=== PATIENT | male | born 1980 | race Caucasian/White ===

== ENCOUNTER 2017-01-04 01:55 | Emergency (ER) | payer OTHER ==
--- NOTE | 2017-01-04 02:55 | ED ---
Constantino Scott Rebecca, scribed for Fortino Goins MD on 01/04/17 at 0249 . Lower Extremity - HPI Summary HPI Summary: Pt is a 36 y/o M BIBA who presents to ED C/O LLE swelling and pain. Reports swelling began in the foot, then traveled up the leg. Pain in the L foot is currently moderate, ranked 7/10. Sx began earlier this morning at approximately 0000 and have been constant since onset. Sx aggravated and alleviated by nothing. Denies fever. Pt is able to bear weight. Negative trauma. Confirms he has been walking around barefoot. Unsure of the last time he saw his PCP. - History of Current Complaint Chief Complaint: EDExtremityLower Stated Complaint: LEG PAIN Time Seen by Provider: 01/04/17 02:39 Hx Obtained From: Patient Onset of Pain: Hours, Prior to Arrival Onset/Duration: Still Present Severity Currently: Moderate Pain Intensity: 7 Pain Scale Used: 0-10 Numeric Timing: Constant Location: Is Discrete @ - L foot Associated Signs And Symptoms: Positive: Swelling - LLE swelling Aggravating Factor(s): Nothing Alleviating Factor(s): Nothing Able to Bear Weight: Yes - Allergies/Home Medications Allergies/Adverse Reactions: Allergies Allergy/AdvReac Type Severity Reaction Status Date / Time No Known Allergies Allergy Verified 04/26/12 20:35 PMH/Surg Hx/FS Hx/Imm Hx Endocrine/Hematology History: Denies: Hx Anticoagulant Therapy, Hx Diabetes, Hx Thyroid Disease Cardiovascular History: Denies: Hx Hypertension, Hx Pacemaker/ICD Respiratory History: Reports: Hx Asthma - childhood Denies: Hx Chronic Obstructive Pulmonary Disease (COPD) History: Denies: Hx Renal Disease Neurological History: Denies: Hx Dementia, Hx Seizures Psychiatric History: Denies: Hx Substance Abuse - Surgical History Surgery Procedure, Year, and Place: 2 left EYE LID SURGERIES Infectious Disease History: No Infectious Disease History: Denies: Hx Hepatitis, Hx Human Immunodeficiency Virus (HIV), History Other Infectious Disease, Traveled Outside the [place] in Last 30 Days - Social History Alcohol Use: None 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, 2012 Substance Use Type: Reports: Heroin, Marijuana Substance Use Comment - 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: meth, uses daily Smoking Status (MU): Heavy Every Day Tobacco Smoker Type: Cigarettes Amount Used/How Often: 1 ppd Review of Systems Negative: Fever Positive: Arthralgia - LLE swelling and pain All Other Systems Reviewed And Are Negative: Yes Physical Exam Triage Information Reviewed: Yes Vital Signs On Initial Exam: Initial Vitals Temp Pulse Resp BP Pulse Ox 97.4 F 63 16 136/78 100 01/04/17 02:06 01/04/17 02:06 01/04/17 02:06 01/04/17 02:06 01/04/17 02:06 Vital Signs Reviewed: Yes Appearance: Positive: Well-Appearing, No Pain Distress Skin: Positive: Warm Head/Face: Positive: Normal Head/Face Inspection Eyes: Positive: YURIDIA ENT: Positive: Hearing grossly normal Neck: Positive: Supple Respiratory/Lung Sounds: Positive: Clear to Auscultation, Breath Sounds Present Cardiovascular: Positive: RRR Abdomen Description: Positive: Nontender, Soft Bowel Sounds: Positive: Present Musculoskeletal: Positive: Strength/ROM Intact, Other - 1+ bipedal edema Neurological: Positive: Alert, Oriented to Person Place, Time Psychiatric: Positive: Affect/Mood Appropriate - [place] Coma Scale Coma Scale Total: 15 Diagnostics - Vital Signs Vital Signs Temp Pulse Resp BP Pulse Ox 01/04/17 02:08 97.4 F 63 16 136/78 100 01/04/17 02:06 97.4 F 63 16 136/78 100 - Laboratory Result Diagrams: 01/04/17 03:05 01/04/17 03:05 Lab Statement: Any lab studies that have been ordered have been reviewed, and results considered in the medical decision making process. Re-Evaluation - Re-Evaluation First Eval Comment: results d/w pt Lower Extremity Course/Dx - Course Assessment/Plan: Pt is a 36 y/o M BIBA who presents to ED C/O LLE swelling and pain. Reports swelling began in the foot, then traveled up the leg. Pain in the L foot is currently moderate, ranked 7/10. Sx began earlier this morning at approximately 0000 and have been constant since onset. Sx aggravated and alleviated by nothing. Denies fever. Pt is able to bear weight. Negative trauma. Confirms he has been walking around barefoot. Pt will be D/C to home with Dx of pedal edema. He understands and agrees. - Diagnoses Provider Diagnoses: Pedal edema Discharge - Discharge Plan Condition: Stable Disposition: HOME Patient Education Materials: Leg Edema (ED) Referrals: Jeison Woody MD [Primary Care Provider] - 3 Days The documentation as recorded by the Constantino parker Rebecca accurately reflects the service I personally performed and the decisions made by me, Fortino Goins MD.
[2017-01-04 03:11] LABS: Hematocrit 40 % (42-52); Hemoglobin 13.2 g/dl (14.0-18.0); Mean Corpuscular HGB Conc 33 g/dl (31-36); Mean Corpuscular Hemoglobin 32 pg (27-31); Mean Corpuscular Volume 95 fL (80-94); Mean Platelet Volume 7 um3 (7.4-10.4); Red Blood Count 4.14 10^6/ul (4.0-5.4); Red Cell Distribution Width 13 % (10.5-15); White Blood Count 6.8 10^3/ul (3.5-10.8)
[2017-01-04 03:27] LABS: BUN/Creatinine Ratio 7.9 (8-20); Calcium 8.9 mg/dL (8.6-10.3); EGFR African American 185.3 (>60); EGFR Non-African American 144.1 (>60); Potassium 3.5 mmol/L (3.5-5.0)
[2017-01-04 04:50] VITALS: BP 145/90
== END 2017-01-04 04:48 | disposition home or self-care (01) ==
LOC: ED 01:55
DX: R60.0 Localized edema (principal); J45.909 Unspecified asthma, uncomplicated; F11.90 Opioid use, unspecified, uncomplicated; F17.210 Nicotine dependence, cigarettes, uncomplicated
CPT/HCPCS: 36415; 80048; 85025; 99283

== ENCOUNTER 2017-07-22 11:36 | Emergency (ER) | payer OTHER ==
[2017-07-22 13:53] VITALS: BP 128/73
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
== END 2017-07-22 14:55 | disposition home or self-care (01) ==
LOC: UCEAST 11:36
DX: S00.93XA Contusion of unspecified part of head, initial encounter (principal); W50.0XXA Accidental hit or strike by another person, initial encounter; Y93.9 Activity, unspecified; Y92.9 Unspecified place or not applicable; F11.90 Opioid use, unspecified, uncomplicated; F12.90 Cannabis use, unspecified, uncomplicated; F17.210 Nicotine dependence, cigarettes, uncomplicated
CPT/HCPCS: 70450; 99211; G0463

== ENCOUNTER 2018-07-06 14:31 | Emergency (ER) | payer OTHER ==
[2018-07-06 14:50] VITALS: BP 107/67
--- NOTE | 2018-07-06 15:17 | ED ---
Throat Pain/Nasal Congestion - HPI Summary HPI Summary: swelling left eye, upper and lower lid, with minimal pain, no fever , or chills same thing occurred to right eye several weeks before, resolved spontaneously - History of Current Complaint Chief Complaint: UCEye Time Seen by Provider: 07/06/18 14:58 Hx Obtained From: Patient Onset/Duration: Lasting Days Severity: Moderate - Epiglottits Risk Factors Epiglottis Risk Factors: Negative - Allergies/Home Medications Allergies/Adverse Reactions: Allergies Allergy/AdvReac Type Severity Reaction Status Date / Time No Known Allergies Allergy Verified 07/06/18 14:50 PMH/Surg Hx/FS Hx/Imm Hx Previously Healthy: Yes Endocrine/Hematology History: Denies: Hx Anticoagulant Therapy, Hx Diabetes, Hx Thyroid Disease Cardiovascular History: Denies: Hx Hypertension, Hx Pacemaker/ICD Respiratory History: Denies: Hx Asthma - childhood, Hx Chronic Obstructive Pulmonary Disease (COPD ) GI History: Denies: Hx Ulcer History: Denies: Hx Renal Disease Neurological History: Denies: Hx Dementia, Hx Seizures Psychiatric History: Denies: Hx Substance Abuse - Surgical History Surgery Procedure, Year, and Place: 2 left EYE LID SURGERIES to raise eyelid Infectious Disease History: No Infectious Disease History: Denies: Hx Hepatitis, Hx Human Immunodeficiency Virus (HIV), History Other Infectious Disease, Traveled Outside the [place] in Last 30 Days - Family History Known Family History: Positive: Diabetes, Other - HLD - Social History Alcohol Use: None 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, 2012 Substance Use Type: Reports: None Substance Use Comment - 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: meth, uses daily clean 30 days Smoking Status (MU): Heavy Every Day Tobacco Smoker Type: Cigarettes Amount Used/How Often: 1 ppd Review of Systems Constitutional: Negative Eyes: Other - discharge right eye, swelling upper lid, ENT: Negative Cardiovascular: Negative Respiratory: Negative Gastrointestinal: Negative All Other Systems Reviewed And Are Negative: Yes Physical Exam Triage Information Reviewed: Yes Vital Signs On Initial Exam: Initial Vitals Temp Pulse Resp BP Pulse Ox 36.7 C 88 18 107/67 99 07/06/18 14:44 07/06/18 14:44 07/06/18 14:44 07/06/18 14:44 07/06/18 14:44 Vital Signs Reviewed: Yes Appearance: Positive: Well-Appearing, No Pain Distress Skin: Positive: Warm - swellling left upper lid, with some drainage from the lower lid? nontender, Other - lesions of the posterior scalp with scabs , without drainage Head/Face: Positive: Normal Head/Face Inspection Eyes: Positive: Discharge - swelling left upper lid ENT: Positive: Normal ENT inspection Neck: Positive: Supple Respiratory/Lung Sounds: Positive: Clear to Auscultation Diagnostics - Vital Signs Vital Signs Temp Pulse Resp BP Pulse Ox 07/06/18 14:44 36.7 C 88 18 107/67 99 - Laboratory Lab Statement: Any lab studies that have been ordered have been reviewed, and results considered in the medical decision making process. EENT Course/Dx - Diagnoses Provider Diagnoses: Preseptal cellulitis of left eye Discharge - Sign-Out/Discharge Documenting (check all that apply): Patient Departure All imaging exams completed and their final reports reviewed: No - Discharge Plan Condition: Fair Disposition: HOME Prescriptions: Amoxicillin/Clavulanate TAB* [Augmentin TAB 875*] 875 mg PO BID #14 tab Patient Education Materials: Periorbital Cellulitis in Adults (ED) Referrals: Anmol Liu MD [Primary Care Provider] - Matti Garcias MD [Medical Doctor] - Additional Instructions: 4:30 Dr. Moses office - Billing Disposition and Condition Condition: FAIR Disposition: Home
[2018-07-06] MEDS ORDERED: Amoxicillin/Clavulanate TAB* 875 MG PO ONE (15:33)
== END 2018-07-06 15:46 | disposition home or self-care (01) ==
LOC: UCEAST 14:31
DX: L03.213 Periorbital cellulitis (principal); F17.210 Nicotine dependence, cigarettes, uncomplicated
CPT/HCPCS: 87070; 87077; 87186; 87205; 99212; A9270-GY; G0463

== ENCOUNTER 2019-01-24 11:01 | Emergency (ER) | payer OTHER ==
[2019-01-24 11:18] VITALS: BP 139/85
[2019-01-24] MEDS ORDERED: NS 0.9% 1000 ML** 1,000 ML IV ONE (11:45)
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
== END 2019-01-24 12:00 | disposition short-term general hospital (02) ==
LOC: UCEAST 11:01
DX: R06.02 Shortness of breath (principal); I48.91 Unspecified atrial fibrillation
CPT/HCPCS: 93005; 99213; G0463

== ENCOUNTER 2019-01-24 12:31 | Emergency (ER) | payer OTHER ==
[2019-01-24] MEDS ORDERED: Aspirin 81 mg CHEW TAB* 81 MG TAB.CHEW PO ONE (12:40)
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
[2019-01-24 13:41] LABS: ABS Eosinophils 0.3 10^3/ul (0-0.6); ABS Lymphocytes 2.2 10^3/ul (1.0-4.8); ABS Monocytes 0.6 10^3/ul (0-0.8); ABS Neutrophils 2.8 10^3/ul (1.5-7.7); Eosinophil % 4.4 %; Hematocrit 46 % (42-52); Hemoglobin 16.5 g/dL (14.0-18.0); Lymphocyte % 37.1 %; Mean Corpuscular HGB Conc 36 g/dL (31-36); Mean Corpuscular Hemoglobin 33 pg (27-31); Mean Corpuscular Volume 92 fL (80-94); Mean Platelet Volume 7.2 fL (7.4-10.4); Nucleated Red Blood Cells % 0.1; Platelet Count 311 10^3/uL (150-450); Red Blood Count 5.08 10^6 /uL (4.18-5.48); Red Cell Distribution Width 14 % (10-15); White Blood Count 5.9 10^3/uL (3.5-10.8)
[2019-01-24 13:56] LABS: Albumin 4.7 g/dL (3.2-5.2); Albumin/Globulin Ratio 1.6 (1-3); BUN/Creatinine Ratio 16.5 (8-20); Calcium 9.5 mg/dL (8.6-10.3); EGFR African American 132.8 (>60); EGFR Non-African American 109.8 (>60); Potassium 4.4 mmol/L (3.5-5.0); Total Bilirubin 0.7 mg/dL (0.2-1.0); Total Protein 7.7 g/dL (6.4-8.9)
[2019-01-24 16:54] VITALS: BP 139/64
== END 2019-01-24 17:01 | disposition home or self-care (01) ==
LOC: ED 12:31
DX: R07.9 Chest pain, unspecified (principal); R06.02 Shortness of breath; R11.0 Nausea; F19.10 Other psychoactive substance abuse, uncomplicated; F17.210 Nicotine dependence, cigarettes, uncomplicated
CPT/HCPCS: 36415; 71045; 80053; 84484; 85025; 93005; 99283; A9270-GY

== ENCOUNTER 2019-04-07 08:45 | Emergency (ER) | payer OTHER ==
[2019-04-07 09:02] VITALS: BP 122/73
[2019-04-07] MEDS ORDERED: Tetan/Diph/Pertus SYR(Tdap)* 0.5 ML SYR(BOOSTRIX) use SYR contains LATEX IM ONE (09:06)
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
== END 2019-04-07 11:09 | disposition home or self-care (01) ==
LOC: UCEAST 08:45
DX: M70.21 Olecranon bursitis, right elbow (principal); S60.811D Abrasion of right wrist, subsequent encounter; I10 Essential (primary) hypertension; J45.909 Unspecified asthma, uncomplicated; F17.210 Nicotine dependence, cigarettes, uncomplicated; Z23 Encounter for immunization; W19.XXXD Unspecified fall, subsequent encounter
CPT/HCPCS: 87070; 87077; 87186; 87205; 87640; 87641; 90471; 90715; 99213; G0463

== ENCOUNTER 2019-05-05 23:23 | Emergency (ER) | payer OTHER ==
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
[2019-05-06 00:36] LABS: ABS Basophils 0.1 10^3/ul (0-0.2); ABS Eosinophils 0.3 10^3/ul (0-0.6); ABS Lymphocytes 1.9 10^3/ul (1.0-4.8); ABS Monocytes 0.7 10^3/ul (0-0.8); Eosinophil % 4.8 %; Hematocrit 38 % (42-52); Hemoglobin 13.2 g/dL (14.0-18.0); Lymphocyte % 26.8 %; Mean Corpuscular HGB Conc 35 g/dL (31-36); Mean Corpuscular Hemoglobin 32 pg (27-31); Mean Corpuscular Volume 92 fL (80-94); Mean Platelet Volume 6.9 fL (7.4-10.4); Platelet Count 277 10^3/uL (150-450); Red Blood Count 4.16 10^6 /uL (4.18-5.48); Red Cell Distribution Width 13 % (10-15); White Blood Count 6.9 10^3/uL (3.5-10.8)
[2019-05-06 00:46] LABS: ALT 33 U/L (7-52); AST 42 U/L (13-39); Albumin 4.1 g/dL (3.2-5.2); Albumin/Globulin Ratio 1.6 (1-3); Alkaline Phosphatase 71 U/L (34-104); Anion Gap 5 mmol/L (2-11); BUN/Creatinine Ratio 9.5 (8-20); Blood Urea Nitrogen 6 mg/dL (6-24); CO2 Carbon Dioxide 28 mmol/L (22-32); Calcium 9.5 mg/dL (8.6-10.3); Chloride 106 mmol/L (101-111); EGFR African American 171.6 (>60); EGFR Non-African American 141.8 (>60); Globulin 2.6 g/dL (2-4); Glucose 154 mg/dL (70-100); Potassium 3.5 mmol/L (3.5-5.0); Sodium 139 mmol/L (135-145); Total Protein 6.7 g/dL (6.4-8.9)
[2019-05-06 01:02] LABS: Acetaminophen < 15 mcg/mL; Alcohol < 10 mg/dL (<10); Salicylate < 2.50 mg/dL (<30)
[2019-05-06 01:16] LABS: TSH (Thyroid Stimulating Horm) 0.49 mcIU/mL (0.34-5.60)
[2019-05-06 02:47] LABS: Urine Appearance Cloudy; Urine Color Yellow; Urine Specific Gravity 1.025 (1.010-1.030)
[2019-05-06 02:48] LABS: Urine Ketones 1+ (Negative); Urine Urobilinogen Positive (Negative)
[2019-05-06 02:49] LABS: Urine Blood Negative (Negative); Urine Protein Negative (Negative)
[2019-05-06 02:50] LABS: Urine Bilirubin 0 (Negative); Urine Glucose Negative (Negative); Urine Nitrite 0 (Negative)
[2019-05-06 02:58] LABS: Urine Benzodiazepine Screen None Detected (None Detect); Urine Opiates Screen None Detected (None Detect)
[2019-05-06 05:51] VITALS: BP 129/77
== END 2019-05-06 05:50 | disposition home or self-care (01) ==
LOC: ED 23:23
DX: F19.14 Other psychoactive substance abuse with psychoactive substance-induced mood disorder (principal); R45.851 Suicidal ideations; I10 Essential (primary) hypertension; F17.210 Nicotine dependence, cigarettes, uncomplicated
CPT/HCPCS: 36415; 80053; 80307; 80320; 80329; 81003; 84443; 85025; 99285; G0480

== ENCOUNTER 2019-08-13 10:04 | Emergency (ER) | payer OTHER ==
[2019-08-13 10:41] LABS: Influenza A Molecular POSITIVE (Negative)
[2019-08-13] MEDS ORDERED: Ketorolac *IM* INJ* 60 MG/2 ML VIAL IM ONE (10:41)
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
[2019-08-13] MEDS ORDERED: Acetaminophen TAB* 325 MG PO ONE (10:42)
[2019-08-13 12:26] VITALS: BP 139/74
== END 2019-08-13 12:38 | disposition home or self-care (01) ==
LOC: UCEAST 10:04
DX: J11.1 Influenza due to unidentified influenza virus with other respiratory manifestations (principal); M54.9 Dorsalgia, unspecified; M16.12 Unilateral primary osteoarthritis, left hip; F17.210 Nicotine dependence, cigarettes, uncomplicated; Z98.890 Other specified postprocedural states; X50.0XXA Overexertion from strenuous movement or load, initial encounter; Y93.H1 Activity, digging, shoveling and raking; Y92.9 Unspecified place or not applicable
CPT/HCPCS: 71046; 81003; 87086; 99212; A9270-GY; G0463; J1885

== ENCOUNTER 2021-11-12 06:21 | Inpatient (IN) ==
[2021-11-12 06:55] LABS: ABS Eosinophils 0.2 10^3/ul (0-0.6); ABS Monocytes 0.4 10^3/ul (0-0.8); Eosinophil % 2.3 %; Hematocrit 45 % (42-52); Hemoglobin 15.1 g/dL (14.0-18.0); Mean Corpuscular HGB Conc 33 g/dL (31-36); Mean Corpuscular Hemoglobin 31 pg (27-31); Mean Corpuscular Volume 93 fL (80-94); Mean Platelet Volume 6.6 fL (7.4-10.4); Platelet Count 336 10^3/uL (150-450); Red Blood Count 4.85 10^6 /uL (4.18-5.48); Red Cell Distribution Width 14 % (10-15); White Blood Count 8.6 10^3/uL (3.5-10.8)
[2021-11-12] MEDS ORDERED: Naloxone 0.4 mg VIAL 0.4 mg/ml 1 ml VIAL ONE (07:02)
[2021-11-12] MEDS ORDERED: Naloxone 0.4 mg VIAL 0.4 mg/ml 1 ml VIAL IV PUSH ONE (07:04)
[2021-11-12] MEDS ORDERED: Ondansetron 4 mg VIAL 2 MG/ML 2 ml VIAL IV PRN (07:45)
[2021-11-12 07:49] LABS: ALT 49 U/L (7-52); AST 38 U/L (13-39); Acetaminophen < 15 mcg/mL; Albumin 4.8 g/dL (3.2-5.2); Albumin/Globulin Ratio 1.6 (1-3); Alcohol, S < 13 mg/dL (<13); Alkaline Phosphatase 101 U/L (35-149); Anion Gap 10 mmol/L (2-11); Blood Urea Nitrogen 18 mg/dL (6-24); CO2 Carbon Dioxide 25 mmol/L (22-32); Calcium 9.8 mg/dL (8.6-10.3); Chloride 101 mmol/L (101-111); Glucose 196 mg/dL (70-100); Potassium 3.8 mmol/L (3.5-5.0); Salicylate < 2.50 mg/dL (<30); Sodium 136 mmol/L (135-145); Total Protein 7.8 g/dL (6.4-8.9); eGFR CKD-EPI 90.4 (>60)
[2021-11-12] MEDS ORDERED: Naloxone 0.4 mg VIAL 2 MG in NS 0.9% 250 ml 245 ML IV SCH (08:00)
[2021-11-12] MEDS: NS 0.9% 1000 ml BAG 1,000 ML IV ONE ×2 (08:47→08:52)
[2021-11-12 10:04] LABS: Acetaminophen < 15 mcg/mL; Salicylate < 2.50 mg/dL (<30)
[2021-11-12] MEDS: Lactated Ringers 1000 ml BAG 1,000 ML IV SCH ×2 (11:02→18:31)
[2021-11-12] MEDS: Nicotine PATCH 21 MG/24 HR PATCH TRANSDERM SCH (12:33)
[2021-11-12 19:48] LABS: Urine Benzodiazepine Screen None Detected (None Detect); Urine Cannabinoids Screen Presumptive Positive (None Detect); Urine Opiates Screen None Detected (None Detect)
[2021-11-12 22:16] LABS: Magnesium 2.1 mg/dL (1.9-2.7); Phosphorus 3.4 mg/dL (2.5-5.0)
[2021-11-13] MEDS: Lactated Ringers 1000 ml BAG 1,000 ML IV SCH (02:51)
[2021-11-13 04:19] LABS: ABS Eosinophils 0.2 10^3/ul (0-0.6); ABS Lymphocytes 1.8 10^3/ul (1.0-4.8); ABS Monocytes 0.3 10^3/ul (0-0.8); ABS Neutrophils 3.5 10^3/ul (1.5-7.7); Eosinophil % 3.1 %; Hematocrit 39 % (42-52); Hemoglobin 12.9 g/dL (14.0-18.0); Lymphocyte % 30.7 %; Mean Corpuscular HGB Conc 33 g/dL (31-36); Mean Corpuscular Hemoglobin 31 pg (27-31); Mean Corpuscular Volume 93 fL (80-94); Mean Platelet Volume 6.7 fL (7.4-10.4); Platelet Count 281 10^3/uL (150-450); Red Blood Count 4.14 10^6 /uL (4.18-5.48); Red Cell Distribution Width 14 % (10-15); White Blood Count 5.9 10^3/uL (3.5-10.8)
[2021-11-13 04:22] LABS: INR 1.18 (0.86-1.15)
[2021-11-13 04:35] LABS: Calcium 8.5 mg/dL (8.6-10.3); Potassium 3.8 mmol/L (3.5-5.0); eGFR CKD-EPI 129.9 (>60)
[2021-11-13 06:33] VITALS: BP 149/103
[2021-11-13] MEDS: Nicotine PATCH 21 MG/24 HR PATCH TRANSDERM SCH (07:51)
== END 2021-11-13 09:51 | disposition home or self-care (01) | DRG 812 ==
LOC: ED 06:21 → ICU 08:46 → ED 08:47 → ICU 09:09
PROVIDERS: ADMIT Internal Medicine Critical Care Medicine; ATTEND Internal Medicine Critical Care Medicine

== ENCOUNTER 2022-06-08 00:33 | Inpatient (IN) ==
[2022-06-08] MEDS ORDERED: NS 0.9% 1000 ml BAG 1,000 ML IV ONE ×2 (00:40→02:38)
[2022-06-08 01:20] LABS: PCO2 Arterial 41 mmHg (35-45); PO2 Arterial 147 mmHg (80-100)
[2022-06-08 01:28] LABS: ABS Eosinophils 0.2 10^3/ul (0-0.6); ABS Lymphocytes 1.7 10^3/ul (1.0-4.8); ABS Monocytes 0.6 10^3/ul (0-0.8); ABS Neutrophils 4.2 10^3/ul (1.5-7.7); Eosinophil % 3.4 %; Hematocrit 38 % (42-52); Hemoglobin 12.6 g/dL (14.0-18.0); Lymphocyte % 25.4 %; Mean Corpuscular HGB Conc 33 g/dL (31-36); Mean Corpuscular Hemoglobin 31 pg (27-31); Mean Corpuscular Volume 92 fL (80-94); Mean Platelet Volume 6.5 fL (7.4-10.4); Platelet Count 313 10^3/uL (150-450); Red Blood Count 4.11 10^6 /uL (4.18-5.48); Red Cell Distribution Width 14 % (10-15); White Blood Count 6.8 10^3/uL (3.5-10.8)
[2022-06-08 01:34] LABS: INR 1.16 (0.88-1.18)
[2022-06-08 01:49] LABS: ALT 96 U/L (7-52); AST 64 U/L (13-39); Acetaminophen < 15 mcg/mL; Albumin/Globulin Ratio 1.6 (1-3); Alcohol, S < 13 mg/dL (<13); Alkaline Phosphatase 92 U/L (35-149); Anion Gap 7 mmol/L (2-11); Blood Urea Nitrogen 13 mg/dL (6-24); CO2 Carbon Dioxide 30 mmol/L (22-32); Calcium 8.7 mg/dL (8.6-10.3); Chloride 104 mmol/L (101-111); Creatine Kinase 94 U/L (10-223); Globulin 2.5 g/dL (2-4); Glucose 102 mg/dL (70-100); Magnesium 1.8 mg/dL (1.9-2.7); Potassium 3.6 mmol/L (3.5-5.0); Salicylate < 2.50 mg/dL (<30); Sodium 141 mmol/L (135-145); Total Protein 6.5 g/dL (6.4-8.9); eGFR CKD-EPI 121.2 (>60)
[2022-06-08 01:51] LABS: High Sens Troponin Baseline 7 pg/mL (<20)
[2022-06-08 02:03] LABS: TSH Ultra Thyroid Stim Horm 2.28 mcIU/mL (0.34-5.60)
[2022-06-08 03:28] LABS: High Sensitivity Troponin 1 Hr 16 pg/mL (<20)
[2022-06-08] MEDS ORDERED: Naloxone 0.4 mg VIAL 0.4 mg/ml 1 ml VIAL IV PUSH ONE ×2 (03:43→08:54)
[2022-06-08 05:16] LABS: Urine Appearance Clear; Urine Bilirubin Negative (Negative); Urine Blood Negative (Negative); Urine Color Yellow; Urine Glucose Negative (Negative); Urine Ketones Negative (Negative); Urine Nitrite Negative (Negative); Urine Protein 1+ (30 mg/dL) (Negative); Urine Urobilinogen 0.2 (Negative) (Negative); Urine pH 6.5 (5.0-9.0)
[2022-06-08 05:28] LABS: Urine Benzodiazepine Screen Presumptive Positive (None Detect); Urine Cannabinoids Screen None Detected (None Detect); Urine Opiates Screen None Detected (None Detect)
[2022-06-08 05:39] LABS: Urine Bacteria Absent (Absent); Urine Red Blood Cell Trace(0-2/hpf) (Absent); Urine Squamous Epithelial Cell Present (Absent); Urine White Blood Cell Trace(0-5/hpf) (Absent)
[2022-06-08] MEDS ORDERED: Naloxone 4 mg VIAL 0.4 MG/ML 10 ml VIAL (4 mg) ONE (08:44)
[2022-06-08] MEDS ORDERED: Albuterol/Ipratropium NEB.SOL (2.5/0.5 MG) 3 ML NEB.SOLN INH ONE (08:52)
[2022-06-08] MEDS ORDERED: Magnesium Sulfate IV 3 GM in NS 0.9% 100 ml BAG 100 ML IVPB ONE (13:16)
[2022-06-08] MEDS ORDERED: Naloxone 0.4 mg VIAL 0.4 mg/ml 1 ml VIAL IV PUSH PRN ×2 (13:35→14:32)
[2022-06-08] MEDS ORDERED: Thiamine 100 MG/ML 2 ml VIAL 100 MG, Folic Acid IV 1 MG, Multiple Vitamin IV ADULT 10 M... IV ONE (14:00)
[2022-06-08 14:21] LABS: PCO2 Arterial 47 mmHg (35-45); PO2 Arterial 63 mmHg (80-100)
[2022-06-08] MEDS ORDERED: Naloxone 0.4 mg VIAL 2 MG in NS 0.9% 250 ml 245 ML IV SCH ×3 (17:00)
[2022-06-08] MEDS: NALOXONE IV SCH (17:25)
[2022-06-08] MEDS: NS 0.9% IV SCH (17:25)
[2022-06-08] MEDS: Enoxaparin 40 MG/0.4 ML SYR SUBCUT SCH (17:29)
[2022-06-09] MEDS: NS 0.9% IV SCH (01:50)
[2022-06-09] MEDS: NALOXONE IV SCH (01:50)
[2022-06-09 04:46] LABS: ABS Eosinophils 0.2 10^3/ul (0-0.6); ABS Lymphocytes 1.3 10^3/ul (1.0-4.8); ABS Monocytes 0.8 10^3/ul (0-0.8); ABS Neutrophils 9.6 10^3/ul (1.5-7.7); Eosinophil % 1.5 %; Hematocrit 37 % (42-52); Hemoglobin 12.7 g/dL (14.0-18.0); Lymphocyte % 10.7 %; Mean Corpuscular HGB Conc 35 g/dL (31-36); Mean Corpuscular Hemoglobin 31 pg (27-31); Mean Corpuscular Volume 89 fL (80-94); Mean Platelet Volume 6.7 fL (7.4-10.4); Platelet Count 290 10^3/uL (150-450); Red Blood Count 4.13 10^6 /uL (4.18-5.48); Red Cell Distribution Width 13 % (10-15); White Blood Count 11.9 10^3/uL (3.5-10.8)
[2022-06-09 05:24] LABS: Calcium 8.5 mg/dL (8.6-10.3); Magnesium 1.6 mg/dL (1.9-2.7); Potassium 3.9 mmol/L (3.5-5.0); eGFR CKD-EPI 133.1 (>60)
[2022-06-09] MEDS ORDERED: KCL 10 MEQ/50 ML IVPREMIX 10 MEQ/50 ML BAG IV ONE (05:53)
[2022-06-09] MEDS ORDERED: Magnesium Sulfate IV 3 GM in NS 0.9% 100 ml BAG 100 ML IVPB ONE (05:53)
[2022-06-09] MEDS: Enoxaparin 40 MG/0.4 ML SYR SUBCUT SCH (12:58)
[2022-06-09 16:35] VITALS: BP 120/66
== END 2022-06-09 15:31 | disposition home or self-care (01) | DRG 812 ==
LOC: EDHOLD 00:33 → ED 00:33 → ICU 17:23
PROVIDERS: ADMIT Internal Medicine; ATTEND Internal Medicine

== ENCOUNTER 2024-07-20 16:33 | Inpatient (IN) ==
[2024-07-20 16:37] VITALS: BP 145/89
[2024-07-20 18:40] LABS: Urine Appearance Clear; Urine Bilirubin Negative (Negative); Urine Blood Trace (Negative); Urine Color Light-Yellow; Urine Glucose Negative (Negative); Urine Ketones Negative (Negative); Urine Nitrite Negative (Negative); Urine Protein 1+ (>=30 mg/dL) (Negative); Urine Specific Gravity 1.017 (1.002-1.030); Urine Urobilinogen Negative (Negative)
[2024-07-20 18:48] LABS: Urine Bacteria Absent /HPF (Absent); Urine Red Blood Cell 1+(3-5/hpf) /HPF (0-Trace); Urine White Blood Cell Trace(0-5/hpf) /HPF (0-Trace)
[2024-07-20 19:06] LABS: Urine Benzodiazepine Screen None Detected (None Detect); Urine Cannabinoids Screen None Detected (None Detect); Urine Opiates Screen None Detected (None Detect)
[2024-07-20 19:40] LABS: ABS Eosinophils 0.2 10^3/uL (0.0-0.5); ABS Lymphocytes 1.8 10^3/uL (1.0-4.8); ABS Monocytes 0.4 10^3/uL (0.0-1.1); ABS Neutrophils 3.4 10^3/uL (1.5-7.6); ABS Nucleated RBC 0.01 10^3/ul; Eosinophil % 2.8 %; Hematocrit 41.4 % (38-53); Lymphocyte % 30.3 %; Mean Corpuscular Hemoglobin 30.9 pg (27-33); Mean Corpuscular Hgb Conc 33.8 g/dL (31-36); Mean Corpuscular Volume 91.5 fL (80-97); Mean Platelet Volume 6.6 fL (7.5-11.2); Nucleated Red Blood Cells % 0.2 %/100WBC (0.0-0.8); Platelet Count 332 10^3/uL (150-450); Red Blood Count 4.52 10^6/uL (4.06-5.63); Red Cell Distribution Width 13.8 % (12-17); White Blood Count 5.8 10^3/uL (3.6-10.2)
[2024-07-20 20:14] LABS: ALT 45 U/L (7-52); AST 33 U/L (13-39); Acetaminophen < 15 mcg/mL; Albumin 4.9 g/dL (3.5-5.7); Albumin/Globulin Ratio 1.5 (1-3); Alcohol, S < 13 mg/dL (<13); Alkaline Phosphatase 75 U/L (35-149); Anion Gap 5 mmol/L (2-16); Blood Urea Nitrogen 11 mg/dL (6-24); CO2 Carbon Dioxide 29 mmol/L (22-32); Calcium 9.9 mg/dL (8.6-10.3); Chloride 103 mmol/L (101-111); Creatine Kinase 362 U/L (10-223); Creatinine, Serum 0.67 mg/dL (0.67-1.17); Globulin 3.2 g/dL (2-4); Glucose 128 mg/dL (70-100); Potassium 4.2 mmol/L (3.5-5.0); Salicylate < 2.50 mg/dL (<30); Sodium 137 mmol/L (135-145); Total Bilirubin 0.6 mg/dL (0.2-1.0); Total Protein 8.1 g/dL (6.4-8.9); eGFR CKD-EPI 118.1 (>60)
[2024-07-20 20:28] LABS: TSH Ultra Thyroid Stim Horm 1.06 mcIU/mL (0.34-5.60)
[2024-07-20 21:06] LABS: Erythrocyte Sed Rate 20 mm/Hr (0-14)
[2024-07-20] MEDS ORDERED: Haloperidol 5 mg/ml SDV IV/IM 5 MG/ML AMP ONE (21:16)
[2024-07-20] MEDS ORDERED: Lorazepam PYXIS KEY PRN (21:16)
[2024-07-20] MEDS ORDERED: LORazepam 2 mg VIAL 1 ml ONE (21:16)
[2024-07-20] MEDS: Haloperidol 5 mg/ml SDV IV/IM 5 MG/ML AMP IM ONE (21:30)
[2024-07-20] MEDS: LORazepam 2 mg VIAL 1 ml IM ONE (21:30)
[2024-07-20] MEDS ORDERED: Al Hydrox/Mg Hydrox/Simet LIQ 30 ML UDC PO PRN (22:07)
[2024-07-21] MEDS: Vitamin THERAPEUTIC TAB PO SCH (12:52)
== END 2024-07-21 12:45 | DRG 776 ==
LOC: ED 16:33 → EDHOLD 22:00 → BSU 22:15
PROVIDERS: ADMIT Psychiatry & Neurology Psychiatry; ATTEND Psychiatry & Neurology Psychiatry